=== PATIENT | male | born 1945 | race Caucasian/White ===

== ENCOUNTER → 2018-03-04 | Outpatient (CLI) | payer MEDICARE, BC | LOC: RAD 14:27 | DX: M47.896 Other spondylosis, lumbar region (principal) ==

== ENCOUNTER → 2018-03-12 | Outpatient (CLI) | payer MEDICARE, BC | LOC: RAD 06:54 | DX: M51.37 Other intervertebral disc degeneration, lumbosacral region (principal); M48.061 Spinal stenosis, lumbar region without neurogenic claudication; M51.26 Other intervertebral disc displacement, lumbar region; M48.8X6 Other specified spondylopathies, lumbar region ==

== ENCOUNTER 2018-04-04 13:00 | Outpatient (RCR) | payer MEDICARE, BC | END 2018-04-04 13:30 | disposition home or self-care (01) | LOC: PT 13:00 | DX: M51.36 Other intervertebral disc degeneration, lumbar region (principal) ==

== ENCOUNTER → 2018-12-16 | Outpatient (CLI) | payer MEDICARE, BC | LOC: RAD 14:51 | DX: M51.36 Other intervertebral disc degeneration, lumbar region (principal) ==

== ENCOUNTER → 2019-06-29 | Day surgery (SDC) | payer MEDICARE, BC | LOC: MSO 07:03 | DX: Z12.11 Encounter for screening for malignant neoplasm of colon (principal); D12.2 Benign neoplasm of ascending colon; D12.3 Benign neoplasm of transverse colon; I12.9 Hypertensive chronic kidney disease with stage 1 through stage 4 chronic kidney disease, or unspecified chronic kidney disease; E11.22 Type 2 diabetes mellitus with diabetic chronic kidney disease; N18.9 Chronic kidney disease, unspecified; Z79.84 Long term (current) use of oral hypoglycemic drugs; M10.9 Gout, unspecified; Z79.899 Other long term (current) drug therapy; G47.33 Obstructive sleep apnea (adult) (pediatric); K21.9 Gastro-esophageal reflux disease without esophagitis; E66.9 Obesity, unspecified; Z88.0 Allergy status to penicillin; Z88.2 Allergy status to sulfonamides; Z88.5 Allergy status to narcotic agent; H40.9 Unspecified glaucoma | CPT/HCPCS: 00811; J2704; J3010; J7030 ==

== ENCOUNTER → 2020-04-29 | Outpatient (CLI) | payer MEDICARE, BC | LOC: LAB 09:11 | DX: Z12.5 Encounter for screening for malignant neoplasm of prostate (principal); E02 Subclinical iodine-deficiency hypothyroidism ==

== ENCOUNTER → 2020-06-09 | Outpatient (CLI) | payer MEDICARE, BC ==
[2020-06-09 08:21] LABS: ALBUMIN 4.4 g/dL (3.4-4.8)
[2020-06-09 08:23] LABS: TOTAL PROTEIN 7.9 g/dL (6.2-8.1)
[2020-06-09 08:25] LABS: TOTAL BILIRUBIN 0.5 mg/dL (0.2-1.2)
[2020-06-09 08:29] LABS: DIRECT BILIRUBIN 0.2 mg/dL (0.0-0.5)
== END ==
LOC: LAB 07:36
PROVIDERS: Family Medicine
DX: E11.9 Type 2 diabetes mellitus without complications (principal); E78.2 Mixed hyperlipidemia; M10.9 Gout, unspecified; N28.9 Disorder of kidney and ureter, unspecified

== ENCOUNTER → 2020-09-20 | Outpatient (CLI) | payer MEDICARE, BC ==
[~2020-09-20] MED LIST: ALLOPURINOL300 M1 PO; AMBIEN5 M1 PO; ATORVASTATIN CA80 MG PO; BASAGLAR K100 UNIT/1 SQ; FUROSEMIDE20 MG PO; LEVOTHYROXIN0.025 MG PO; LISINOPRIL AND1 TA1 PO; METOPROLOL SUC100 M1 PO; NORVASC 10MG10 MG PO; NOVOLOG FLEX100 U/ML SQ; PRILOSEC 20MG20 MG PO; TRULICITY1.5 MG/0.5 SC
[2020-09-20 08:13] LABS: HEMATOCRIT 38.7 % (42.0-52.0); HEMOGLOBIN 11.9 g/dL (13.5-18.0); MEAN PLATELET VOLUME 10.1 fl (7.4-10.4); RED BLOOD COUNT 3.84 M/mm3 (4.20-5.60); RED CELL DISTRIBUTION WIDTH 14.2 % (11.5-14.5); WHITE BLOOD COUNT 8.6 K/mm3 (4.8-10.8)
[2020-09-20 08:29] LABS: ALBUMIN 4.4 g/dL (3.4-4.8); POTASSIUM 4.7 mmol/L (3.5-5.1)
[2020-09-20 08:30] LABS: CALCIUM 9.3 mg/dL (8.3-10.5)
[2020-09-20 08:32] LABS: TOTAL PROTEIN 7.4 g/dL (6.2-8.1)
[2020-09-20 08:33] LABS: TOTAL BILIRUBIN 0.7 mg/dL (0.2-1.2)
== END ==
LOC: LAB 07:53
PROVIDERS: Family Medicine
DX: E78.00 Pure hypercholesterolemia, unspecified (principal); N08 Glomerular disorders in diseases classified elsewhere; E03.9 Hypothyroidism, unspecified; E13.9 Other specified diabetes mellitus without complications; I10 Essential (primary) hypertension

== ENCOUNTER 2020-10-02 10:07 | Emergency (ER) | payer MEDICARE, BC ==
[2020-10-02] MEDS ORDERED: LISINOPRIL AND1 TA1 PO (10:20)
[2020-10-02] MEDS ORDERED: AMBIEN5 M1 PO (10:20)
[2020-10-02] MEDS ORDERED: NORVASC 10MG10 MG PO (10:21)
[2020-10-02] MEDS ORDERED: ATORVASTATIN CA80 MG PO (10:21)
[2020-10-02] MEDS ORDERED: ALLOPURINOL300 M1 PO (10:21)
[2020-10-02] MEDS ORDERED: METOPROLOL SUC100 M1 PO (10:21)
[2020-10-02] MEDS ORDERED: FUROSEMIDE20 MG PO (10:21)
[2020-10-02] MEDS ORDERED: LEVOTHYROXIN0.025 MG PO (10:21)
[2020-10-02] MEDS ORDERED: PRILOSEC 20MG20 MG PO (10:21)
[2020-10-02] MEDS ORDERED: BASAGLAR K100 UNIT/1 SQ (10:21)
[2020-10-02] MEDS ORDERED: TRULICITY1.5 MG/0.5 SC (10:22)
[2020-10-02] MEDS ORDERED: NOVOLOG FLEX100 U/ML SQ (10:22)
[2020-10-02 12:16] VITALS: BP 144/71
== END 2020-10-02 11:42 | disposition home or self-care (01) ==
LOC: ED 10:07
DX: M25.512 Pain in left shoulder (principal); E11.9 Type 2 diabetes mellitus without complications; I10 Essential (primary) hypertension; E03.9 Hypothyroidism, unspecified; E78.5 Hyperlipidemia, unspecified; M10.9 Gout, unspecified; Z79.890 Hormone replacement therapy; Z79.4 Long term (current) use of insulin; W18.2XXA Fall in (into) shower or empty bathtub, initial encounter

== ENCOUNTER → 2020-11-04 | Outpatient (CLI) | payer MEDICARE, BC ==
[2020-11-04 08:58] LABS: HEMATOCRIT 37.3 % (42.0-52.0); HEMOGLOBIN 11.3 g/dL (13.5-18.0); MEAN PLATELET VOLUME 9.8 fl (7.4-10.4); RED BLOOD COUNT 3.62 M/mm3 (4.20-5.60); RED CELL DISTRIBUTION WIDTH 14.6 % (11.5-14.5); WHITE BLOOD COUNT 8.6 K/mm3 (4.8-10.8)
[2020-11-04 09:06] LABS: ALBUMIN 4.4 g/dL (3.4-4.8); POTASSIUM 5.6 mmol/L (3.5-5.1)
[2020-11-04 09:07] LABS: CALCIUM 9.3 mg/dL (8.3-10.5)
[2020-11-04 09:09] LABS: TOTAL PROTEIN 7.6 g/dL (6.2-8.1)
[2020-11-04 09:10] LABS: TOTAL BILIRUBIN 0.5 mg/dL (0.2-1.2)
== END ==
LOC: LAB 08:39
PROVIDERS: Family Medicine
DX: I10 Essential (primary) hypertension (principal); E03.9 Hypothyroidism, unspecified; E13.9 Other specified diabetes mellitus without complications

== ENCOUNTER → 2020-11-14 | Outpatient (CLI) | payer MEDICARE, BC ==
[2020-11-14 08:00] LABS: ALBUMIN 4.3 g/dL (3.4-4.8)
[2020-11-14 08:01] LABS: CALCIUM 9.5 mg/dL (8.3-10.5)
[2020-11-14 08:02] LABS: TOTAL PROTEIN 7.6 g/dL (6.2-8.1)
[2020-11-14 08:04] LABS: TOTAL BILIRUBIN 0.4 mg/dL (0.2-1.2)
[2020-11-14 08:46] LABS: POTASSIUM 5.4 mmol/L (3.5-5.1)
== END ==
LOC: LAB 07:31
PROVIDERS: Family Medicine
DX: E87.5 Hyperkalemia (principal)

== ENCOUNTER → 2020-12-12 | Outpatient (CLI) | payer MEDICARE, BC ==
[2020-12-12 08:41] LABS: ALBUMIN 4.4 g/dL (3.4-4.8); POTASSIUM 5.6 mmol/L (3.5-5.1)
[2020-12-12 08:42] LABS: CALCIUM 9.4 mg/dL (8.3-10.5)
[2020-12-12 08:44] LABS: TOTAL PROTEIN 7.6 g/dL (6.2-8.1)
[2020-12-12 08:45] LABS: TOTAL BILIRUBIN 0.5 mg/dL (0.2-1.2)
== END ==
LOC: LAB 08:08
PROVIDERS: Family Medicine
DX: E87.5 Hyperkalemia (principal)

== ENCOUNTER → 2021-09-06 | Outpatient (CLI) | payer MEDICARE, BC ==
[2021-09-06 10:06] LABS: BASO # 0.05 K/mm3 (0.02-0.10); EOS # 0.09 K/mm3 (0.04-0.40); HEMATOCRIT 34.2 % (42.0-52.0); HEMOGLOBIN 10.7 g/dL (13.5-18.0); LYMPH# 0.83 K/mm3 (1.50-4.00); MEAN CELL VOLUME 97 fl (78-100); MEAN CORPUSCULAR HEMOGLOBIN 30 pg (27-31); MEAN CORPUSCULAR HGB CONC 31 g/dL (33-37); MEAN PLATELET VOLUME 10.5 fl (7.4-10.4); MONO # 0.92 K/mm3 (0.20-0.80); NEU # 6.88 K/mm3 (1.40-6.50); PLATELET COUNT 128 K/mm3 (130-400); RED BLOOD COUNT 3.52 M/mm3 (4.20-5.60); RED CELL DISTRIBUTION WIDTH 13.3 % (11.5-14.5); WHITE BLOOD COUNT 8.8 K/mm3 (4.8-10.8)
[2021-09-06 10:08] LABS: ALBUMIN 4.3 g/dL (3.4-4.8); POTASSIUM 4.3 mmol/L (3.5-5.1)
[2021-09-06 10:09] LABS: CALCIUM 8.7 mg/dL (8.3-10.5)
[2021-09-06 10:11] LABS: TOTAL PROTEIN 7.5 g/dL (6.2-8.1)
[2021-09-06 10:13] LABS: TOTAL BILIRUBIN 0.5 mg/dL (0.2-1.2)
== END ==
LOC: LAB 09:30
PROVIDERS: Family Medicine
DX: I48.0 Paroxysmal atrial fibrillation (principal); I10 Essential (primary) hypertension; E13.9 Other specified diabetes mellitus without complications; E03.9 Hypothyroidism, unspecified; K21.9 Gastro-esophageal reflux disease without esophagitis; N08 Glomerular disorders in diseases classified elsewhere; E66.9 Obesity, unspecified; M19.90 Unspecified osteoarthritis, unspecified site

== ENCOUNTER → 2021-09-07 | Outpatient (CLI) | payer MEDICARE, BC ==
[2021-09-07 09:30] LABS: URINE APPEARANCE CLEAR; URINE BILIRUBIN NEGATIVE (NEGATIVE); URINE BLOOD NEGATIVE (NEGATIVE); URINE COLOR YELLOW; URINE GLUCOSE NEGATIVE (NEGATIVE); URINE KETONE NEGATIVE (NEGATIVE); URINE LEUKOCYTE ESTERASE NEGATIVE (NEGATIVE); URINE NITRATE NEGATIVE (NEGATIVE); URINE PROTEIN(semi-quant) 1+ (NEGATIVE); URINE UROBILINOGEN NORMAL (NORMAL); URINE WBC 0-1 /hpf (0-3)
[2021-09-07 09:31] LABS: URINE MUCUS PRESENT (NOT PRESENT)
== END ==
LOC: LAB 08:30
PROVIDERS: Family Medicine
DX: R19.7 Diarrhea, unspecified (principal)

== ENCOUNTER → 2022-01-02 | Outpatient (CLI) | payer MEDICARE, BC | LOC: LAB 17:02 | DX: U07.1 COVID-19 (principal) ==

== ENCOUNTER → 2024-09-10 | Outpatient (CLI) | payer MEDICARE, BC ==
[2024-09-10 08:26] LABS: BASO # 0.01 K/mm3 (0.02-0.10); EOS # 0.13 K/mm3 (0.04-0.40); EOS % 1.7 % (0.0-4.0); HEMATOCRIT 35.6 % (42.0-52.0); HEMOGLOBIN 11.1 g/dL (13.5-18.0); MEAN CELL VOLUME 103 fl (78-100); MEAN CORPUSCULAR HEMOGLOBIN 32 pg (27-31); MEAN CORPUSCULAR HGB CONC 31 g/dL (33-37); MEAN PLATELET VOLUME 9.7 fl (7.4-10.4); NEU # 5.88 K/mm3 (1.40-6.50); PLATELET COUNT 180 K/mm3 (130-400); RED BLOOD COUNT 3.47 M/mm3 (4.20-5.60); RED CELL DISTRIBUTION WIDTH 12.1 % (11.5-14.5); WHITE BLOOD COUNT 7.7 K/mm3 (4.8-10.8)
[2024-09-10 08:31] LABS: ALBUMIN 4.3 g/dL (3.4-4.8)
[2024-09-10 08:32] LABS: CALCIUM 9.4 mg/dL (8.3-10.5)
[2024-09-10 08:33] LABS: TOTAL PROTEIN 7.6 g/dL (6.2-8.1)
[2024-09-10 08:35] LABS: TOTAL BILIRUBIN 0.5 mg/dL (0.2-1.2)
== END ==
LOC: LAB 08:05
PROVIDERS: Family Medicine
DX: Z12.5 Encounter for screening for malignant neoplasm of prostate (principal); I10 Essential (primary) hypertension; M10.9 Gout, unspecified; E78.5 Hyperlipidemia, unspecified; E13.9 Other specified diabetes mellitus without complications; E03.9 Hypothyroidism, unspecified